=== PATIENT | female | born 1935 | race Caucasian/White ===

== ENCOUNTER → 2017-07-19 12:48 | Outpatient (CLI) | payer MEDICARE, OTHER, SELFPAY ==
--- NOTE | 2017-07-19 13:06 | US_ITS ---
US thyroid HISTORY: Follow-up thyroid nodules ITS.REASON: GOITER ORDERING PHYSICIAN: Kai Ayala MD PATIENT AGE: 82 years COMPARISON: 01/12/2017 FINDINGS: The right lobe is enlarged at 6.3 x 2.6 x 2.3 cm. Complex upper pole nodule at 13 x 9 mm unchanged Spongiform-appearing millimeter nodule upper pole unchanged Mixed 9 mm nodule mid polar region unchanged 10 mm spongiform-appearing nodule lower pole unchanged. Additional 13 mm mixed nodule lower pole unchanged The left lobe is enlarged at 5.9 x 2.4 x 2.5 cm. 1 cm slightly hypoechoic nodule mid polar region unchanged additional 12 x 8 mm mixed hypoechoic nodule mid polar region unchanged. 6 mm hypoechoic nodule lower pole unchanged 15 mm mixed hypoechoic nodule lower pole unchanged IMPRESSION: No change multinodular goiter
[2017-07-19 14:32] LABS: Free T4 (Free Thyroxine) 0.83 ng/dl (0.76-1.46); Thyroid Stimulating Hormone 1.73 uIU/ml (0.358-3.740)
[2017-07-21 15:19] LABS: Thyroglobulin Level <1.0 IU/mL (0.0-0.9); Thyroid Peroxidase Antibodies 12 IU/mL (0-34)
== END ==
PROVIDERS: Family Provider Internal Medicine Adolescent Medicine; PCP Internal Medicine Adolescent Medicine; Visit Provider Otolaryngology
DX: E04.9 Nontoxic goiter, unspecified (principal)
CPT/HCPCS: 36415; 76536; 84439; 84443; 86376; 86800

== ENCOUNTER → 2017-08-02 09:04 | Outpatient (CLI) | payer MEDICARE, OTHER, SELFPAY ==
[2017-08-02 13:39] LABS: Alanine Aminotransferase 29 U/L (12-78); Albumin Level 3.8 gm/dL (3.4-5.0); Albumin/Globulin Ratio 1.4 (1.1-1.8); Alkaline Phosphatase 95 U/L (46-116); Anion Gap 9.3 mEq/L (5-15); Aspartate Amino Transferase 10 U/L (15-37); Bilirubin,Total 0.6 mg/dL (0.2-1.0); Blood Urea Nitrogen 25 mg/dL (7-18); Calcium 9.7 mg/dL (8.5-10.1); Carbon Dioxide 31 mmol/L (21.0-32.0); Chloride 98 mmol/L (98-107); Chol/HDL Ratio 2.8 (1-3.5); Cholesterol 144 mg/dL (140-200); Estimated Glomerular Filt Rate 53 ml/min (>60); GFR (African American) 64 ML/MIN (>60); Globulin 2.8 gm/dl (1.3-3.2); Glucose 132 mg/dL (74-106); HDL Cholesterol 51 mg/dL (29-89); LDL Cholesterol 66 mg/dL (0-130); Potassium 4.3 mmoL/L (3.5-5.1); Sodium 134 mmol/L (136-145); Total Protein,Serum 6.6 gm/dL (6.4-8.2); Triglycerides 137 mg/dL (30-200); VLDL Cholesterol 27 mg/dL (0-40)
[2017-08-02 14:28] LABS: Hemoglobin A1C 5.8 % (0.0-7.0)
== END ==
PROVIDERS: PCP Internal Medicine Adolescent Medicine; Visit Provider Internal Medicine Adolescent Medicine
DX: E11.9 Type 2 diabetes mellitus without complications (principal)
CPT/HCPCS: 36415; 80053; 80061; 83036

== ENCOUNTER → 2018-07-20 15:09 | Outpatient (CLI) | payer MEDICARE, OTHER, SELFPAY ==
--- NOTE | 2018-07-20 15:12 | US_ITS ---
US thyroid HISTORY: Follow-up thyroid nodule ITS.REASON: thyroid nodule ORDERING PHYSICIAN: Kai Ayala MD PATIENT AGE: 83 years Comparison: 07/19/2017 FINDINGS: The isthmus is thickened at 7 mm with a 6 mm hypoechoic nodule anteriorly Right lobe is 5.9 x 2.6 x 2.7 cm with heterogeneous echogenicity and multiple mixed echogenic nodules. Largest nodule is 1.4 x 0.8 cm in the lower pole not significant changed. The left lobe is 5.5 x 2.5 x 3 cm with heterogeneous echogenicity with multiple mixed echogenic nodules with the largest nodule in the lower pole at 1.5 cm unchanged. IMPRESSION: No change multinodular goiter
[2018-07-20 17:47] LABS: Free T4 (Free Thyroxine) 0.86 ng/dl (0.76-1.46)
== END ==
PROVIDERS: PCP Internal Medicine Adolescent Medicine; Visit Provider Otolaryngology
DX: E04.1 Nontoxic single thyroid nodule (principal)
CPT/HCPCS: 36415; 76536; 84439; 84443

== ENCOUNTER → 2018-09-27 08:44 | Outpatient (CLI) | payer MEDICARE, OTHER, SELFPAY ==
[2018-09-27 13:46] LABS: Anion Gap 12.8 mEq/L (5-15); Blood Urea Nitrogen 25 mg/dL (7-18); Calcium 9.3 mg/dL (8.5-10.1); Carbon Dioxide 29 mmol/L (21.0-32.0); Chloride 102 mmol/L (98-107); Chol/HDL Ratio 3.2 (1-3.5); Cholesterol 97 mg/dL (140-200); Creatinine,Serum 0.98 mg/dL (0.55-1.02); Estimated Glomerular Filt Rate 54 ml/min (>60); GFR (African American) 65 ML/MIN (>60); Glucose 130 mg/dL (74-106); HDL Cholesterol 30 mg/dL (29-89); LDL Cholesterol 42 mg/dL (0-130); Potassium 3.8 mmoL/L (3.5-5.1); Sodium 140 mmol/L (136-145); Triglycerides 123 mg/dL (30-200); VLDL Cholesterol 25 mg/dL (0-40)
[2018-09-27 14:49] LABS: Hemoglobin A1C 6.4 % (0.0-7.0)
== END ==
PROVIDERS: PCP Internal Medicine Adolescent Medicine; Visit Provider Internal Medicine Adolescent Medicine
DX: E11.9 Type 2 diabetes mellitus without complications (principal); Z79.84 Long term (current) use of oral hypoglycemic drugs; I25.10 Atherosclerotic heart disease of native coronary artery without angina pectoris
CPT/HCPCS: 36415; 80048; 80061; 83036

== ENCOUNTER 2018-10-30 12:37 | Emergency (ER) | payer MEDICARE, OTHER, SELFPAY ==
[2018-10-30 12:38] VITALS: BP 187/98; PULSE 67; RESP 18; TEMP 36.8; O2SAT 95; BMI 25.9
--- NOTE | 2018-10-30 12:38 | CT_ITS ---
CT head/brain wo con HISTORY: ITS.REASON: stroke protocol, weakness, diffuculty with speech ORDERING PHYSICIAN: Tino Escobedo MD PATIENT AGE: 83 years COMPARISON: None TECHNIQUE: Axial images obtained without contrast. Brain and bone windows reviewed. All CT scans at the facility use one or more dose reduction, viz: automated exposure control, ma/kV adjustment per patient size (including targeted exams where dose is matched to indication, i.e. head), or iterative reconstruction technique. FINDINGS: No midline shift, mass effect, intracranial hemorrhage, hydrocephalus, or extra-axial fluid collection is evident. There are some hypodense areas along the left temporal and parietal area which are related to partial volume averaging with a sulcus. There is no definite evidence of cytotoxic or vasogenic edema. There are some bilateral frontal and parietal deep white matter hypodense areas without mass effect. There is no hyperdense vascular sign. There is mild generalized prominence of the sulci. The ventricles and cortical areas are otherwise normal. There are vascular calcified plaques. The calvarium has an unremarkable appearance. No mastoid effusion. No sinus air-fluid levels.. IMPRESSION: No acute intracranial process. Mild generalized cortical atrophy. Nonspecific white matter findings likely from chronic microvascular ischemic change. Nonspecific partially calcified round superior occipital extracranial density could be complicated sebaceous cyst.
--- NOTE | 2018-10-30 12:39 | PC.NURSE ---
pt to CT
[2018-10-30 12:40] VITALS: BMI 25.9
--- NOTE | 2018-10-30 12:53 | HMH.EDGENADL ---
ED Disposition Clinical Impression: TIA (transient ischemic attack) Disposition: Home, Self-Care Condition on Discharge: Good Additional Instructions: See Dr. Robles in the office this week. Increase the dose of losartan to 50 mg daily. Return to the emergency room if your symptoms return. Referrals: Provider,Referral, [Referring] - - Critical Care Critical Care Time: No Attestation: On , the high probability of a clinically significant, sudden or life threatening deterioration of the following system(s) required my full and direct attention, intervention and personal management. The time I documented below is in addition to time spent performing reported procedures but includes the following listed in this critical care notation. Medical Decision Making - Rambo Inquiry Pt receiving controlled substance: No Vital Signs: 10/30/18 12:38 10/30/18 13:30 Temperature 98.2 F Temperature Source Oral Pulse Rate [Right Radial] 67 62 Respiratory Rate 18 18 Blood Pressure [Right Arm] 187/98 H 159/90 H Blood Pressure Mean [Right Arm] 127 113 Blood Pressure Source [Right Arm] Automatic Cuff Automatic Cuff Blood Pressure Position [Right Arm] Sitting Sitting 02 Sat by Pulse Oximetry 95 94 L Oxygen Delivery Method Room Air Room Air - Lab Data Lab Results 10/30/18 12:55: WBC 7.6, RBC 4.10 L, Hgb 13.5, Hct 41.5, MCV 101.2 H, MCH 33.0 H, MCHC 32.6, RDW 12.7, Plt Count 135 L, MPV 7.5, Neut % (Auto) 74.4, Lymph % (Auto) 16.4, [place] % (Auto) 6.1, Eos % (Auto) 2.7, Baso % (Auto) 0.6, Neut # (Auto) 5.6, Lymph # (Auto) 1.2, [place] # (Auto) 0.5, Eos # (Auto) 0.2, Baso # (Auto) 0.0 10/30/18 12:55: Sodium 134 L, Potassium 4.2, Chloride 97 L, Carbon Dioxide 28, Anion Gap 13.2, BUN 21 H, Creatinine 1.15 H, Estimated Creat Clear 45, Estimated GFR 45 L, Est GFR ( Amer) 54 L, Glucose 136 H, Calcium 9.7, Total Bilirubin 0.7, AST 18, ALT 36, Alkaline Phosphatase 125 H, Troponin I < 0.02, Total Protein 6.9, Albumin 3.7, Globulin 3.2, Albumin/Globulin Ratio 1.2 10/30/18 12:55: POC Glucose 143 H Result diagrams: 10/30/18 12:55 10/30/18 12:55 - CT Data CT Scan: Head Time Received: 12:[address] Reviewed: Yes: I have viewed the radiologist's interpretation Findings Narrative: IMPRESSION: No acute intracranial process. Mild generalized cortical atrophy. Nonspecific white matter findings likely from chronic microvascular ischemic change. Nonspecific partially calcified round superior occipital extracranial density could be complicated sebaceous cyst. Dictated By: Manolo Okeefe MD Signed By: <Electronically signed by Manolo Okeefe MD in [facility]> 10/30/18 1253 - ECG Data Tracing #1 EKG interpreted by Tino Escobedo MD: Rhythm: sinus Rate: 61 [place]: Left Ectopy: none Conduction: normal ST Segment Changes: none T Wave Changes: none Q Waves: none No evidence of acute ischemia or injury Low voltage QRS No prior EKGs available for comparison - Physician Consults Physician Consulted: Lenard Robles Time: 13:40 Reason -: Pt condition Comment/Response: Recommends discharge, increase losartan to 50 mg daily. Follow-up in the clinic tomorrow, , or Monday. - Reevaluation(s) Time: 13:27 Reevaluation #1: States head feels wobbly, otherwise feels fine. Blood pressure 159/90. Medical Decision Narrative: Prior Brain MRI: IMPRESSION: No territorial infarct. No acute infarct or ischemia No mass lesions evident at the brain.. Chronic small vessel deep white matter ischemic changes at cerebral hemispheres bilaterally . These are slightly more numerous & partially confluent just above the left basal ganglia & periventricular deep white matter.. However areas are seen in the deep white matter bilaterally Upper normal signal at the globus pallidus on T2 weighted images. Nonspecific as discussed above. May be reflection of small vessel changes/perfusion changes here
--- NOTE | 2018-10-30 12:58 | PC.NURSE ---
fsbs 143
--- NOTE | 2018-10-30 13:01 | PC.NURSE ---
DEANNE JASMINE at
[2018-10-30 13:03] LABS: POC Glucose,Bedside 143 (70-110)
[2018-10-30 13:09] LABS: Basophils % 0.6 % (0.1-2.0); Eosinophils # 0.2 K/mm3 (0.0-0.4); Eosinophils % 2.7 % (0.1-12.0); Hematocrit 41.5 % (37.0-47.0); Hemoglobin 13.5 g/dL (12.2-16.2); Lymphocytes # 1.2 K/mm3 (0.7-4.5); Lymphocytes % 16.4 % (10-50); Mean Corpuscular HGB Conc 32.6 g/dL (31.8-35.4); Mean Corpuscular Volume 101.2 fl (81-99); Mean Platelet Volume 7.5 fl (7.4-10.4); Monocytes # 0.5 K/mm3 (0.1-1.0); Monocytes % 6.1 % (1.7-9.3); Neutrophils # 5.6 K/mm3 (1.8-7.8); Neutrophils % 74.4 % (37.0-80.0); Platelet Count 135 K/mm3 (142-424); Red Cell Distribution Width 12.7 % (11.5-17.5); White Blood Count 7.6 K/mm3 (4.8-10.8)
[2018-10-30 13:18] LABS: Alanine Aminotransferase 36 U/L (12-78); Albumin Level 3.7 gm/dL (3.4-5.0); Albumin/Globulin Ratio 1.2 (1.1-1.8); Alkaline Phosphatase 125 U/L (46-116); Anion Gap 13.2 mEq/L (5-15); Aspartate Amino Transferase 18 U/L (15-37); Bilirubin,Total 0.7 mg/dL (0.2-1.0); Blood Urea Nitrogen 21 mg/dL (7-18); Calcium 9.7 mg/dL (8.5-10.1); Carbon Dioxide 28 mmol/L (21.0-32.0); Chloride 97 mmol/L (98-107); Creatinine Clearance Estimated 45 mL/min (50-200); Creatinine,Serum 1.15 mg/dL (0.55-1.02); Estimated Glomerular Filt Rate 45 ml/min (>60); GFR (African American) 54 ML/MIN (>60); Globulin 3.2 gm/dl (1.3-3.2); Glucose 136 mg/dL (74-106); Potassium 4.2 mmoL/L (3.5-5.1); Sodium 134 mmol/L (136-145); Total Protein,Serum 6.9 gm/dL (6.4-8.2); Troponin I < 0.02 ng/ml (0.00-0.06)
[2018-10-30 13:30] VITALS: BP 159/90; PULSE 62; RESP 18; O2SAT 94
--- NOTE | 2018-10-30 13:46 | PC.NURSE ---
Noreen called from pt PCP office to schedule a follow up visit for pt. Pt will see Dr. Weinberg in the office on Monday11/03/18 at 10:45
[2018-10-30 14:23] VITALS: BP 134/71; PULSE 61; RESP 18; TEMP 36.8; O2SAT 96
== END 2018-10-30 14:23 | disposition home or self-care (01) ==
PROVIDERS: Emergency Provider Emergency Medicine; PCP Internal Medicine Adolescent Medicine
DX: G45.8 Other transient cerebral ischemic attacks and related syndromes (principal); E11.9 Type 2 diabetes mellitus without complications; Z79.84 Long term (current) use of oral hypoglycemic drugs; K21.9 Gastro-esophageal reflux disease without esophagitis; I10 Essential (primary) hypertension; E78.5 Hyperlipidemia, unspecified; I73.9 Peripheral vascular disease, unspecified
CPT/HCPCS: 70450; 80053; 82962; 84484; 85025; 93005; 99283

== ENCOUNTER → 2019-04-11 08:55 | Outpatient (CLI) | payer MEDICARE, OTHER, SELFPAY ==
[2019-04-11 13:46] LABS: Alanine Aminotransferase 24 U/L (12-78); Albumin Level 3.9 gm/dL (3.4-5.0); Albumin/Globulin Ratio 1.5 (1.1-1.8); Alkaline Phosphatase 88 U/L (46-116); Anion Gap 11.7 mEq/L (5-15); Aspartate Amino Transferase 15 U/L (15-37); Bilirubin,Total 0.8 mg/dL (0.2-1.0); Blood Urea Nitrogen 24 mg/dL (7-18); Calcium 9.3 mg/dL (8.5-10.1); Carbon Dioxide 30 mmol/L (21.0-32.0); Chloride 102 mmol/L (98-107); Chol/HDL Ratio 2.5 (1-3.5); Cholesterol 97 mg/dL (140-200); Creatinine,Serum 0.93 mg/dL (0.55-1.02); Estimated Glomerular Filt Rate 57 ml/min (>60); GFR (African American) 69 ML/MIN (>60); Globulin 2.6 gm/dl (1.3-3.2); Glucose 154 mg/dL (74-106); HDL Cholesterol 39 mg/dL (29-89); LDL Cholesterol 38 mg/dL (0-130); Potassium 3.7 mmoL/L (3.5-5.1); Sodium 140 mmol/L (136-145); Total Protein,Serum 6.5 gm/dL (6.4-8.2); Triglycerides 98 mg/dL (30-200); VLDL Cholesterol 20 mg/dL (0-40)
[2019-04-11 13:56] LABS: Hemoglobin A1C 6.8 % (0.0-7.0)
== END ==
PROVIDERS: PCP Internal Medicine Adolescent Medicine; Visit Provider Internal Medicine Adolescent Medicine
DX: E11.9 Type 2 diabetes mellitus without complications (principal); Z79.84 Long term (current) use of oral hypoglycemic drugs
CPT/HCPCS: 36415; 80053; 80061; 83036

== ENCOUNTER → 2019-09-09 13:18 | Outpatient (CLI) | payer MEDICARE, OTHER, SELFPAY ==
--- NOTE | 2019-09-09 13:25 | US_ITS ---
PROCEDURE: US THYROID CLINICAL INDICATION: GOITER COMPARISON: THY US thyroid from 07/20/2018 FINDINGS: Right lobe is 4.4 x 2 x 2.5 cm in the left lobe is 5 x 2.2 x 2.2 cm. There is a ill-defined 1 cm isoechoic to slightly hypoechoic nodule in the isthmus not significantly changed. There are numerous bilateral I so and hypoechoic nodules measuring up to 1.4 cm in the lower pole. These are not significantly changed. Numerous left-sided hypoechoic and isoechoic nodules and cysts are also noted. The largest nodule is in the lower pole at 1.4 cm having both cystic and solid features not significantly changed. No new suspicious nodules are evident. IMPRESSION: No change multinodular goiter Dictated by: Jose Muhammad MD 09/09/2019 18:33 Electronically signed by Jose Muhammad MD in [place] 09/09/2019 18:33
== END ==
PROVIDERS: PCP Internal Medicine Adolescent Medicine; Visit Provider Otolaryngology
DX: E04.9 Nontoxic goiter, unspecified (principal)
CPT/HCPCS: 76536

== ENCOUNTER → 2020-10-06 17:41 | Outpatient (CLI) | payer MEDICARE, OTHER, SELFPAY ==
--- NOTE | 2020-10-06 17:57 | XR_ITS ---
PROCEDURE INFORMATION: Exam: XR Right Knee Exam date and time: 10/06/2020 5:57 PM Age: 85 years old Clinical indication: Pain; Knee; Right; Additional info: Pain, no injury TECHNIQUE: Imaging protocol: XR Right knee. Views: 3 views. COMPARISON: No relevant prior studies available. FINDINGS: Bones/joints: No acute fracture or dislocation. Tibiofemoral compartment chondrocalcinosis. The knee compartments are preserved. Normal bone mineralization. Soft tissues: No effusion or soft tissue swelling. Vasculature: Arterial calcification. IMPRESSION: Tibiofemoral compartment chondrocalcinosis.
[2020-10-06 18:56] LABS: Basophils # 0.1 K/mm3 (0-0.2); Basophils % 0.8 % (0.1-2.0); Eosinophils # 0.3 K/mm3 (0.0-0.4); Eosinophils % 3.8 % (0.1-12.0); Hematocrit 39.2 % (37.0-47.0); Hemoglobin 13.5 g/dL (12.2-16.2); Lymphocytes # 1.9 K/mm3 (0.7-4.5); Lymphocytes % 23.2 % (10-50); Mean Corpuscular HGB Conc 34.6 g/dL (31.8-35.4); Mean Corpuscular Hemoglobin 32.9 pg (27.0-31.2); Mean Platelet Volume 7.1 fl (7.4-10.4); Monocytes # 0.6 K/mm3 (0.1-1.0); Monocytes % 7.9 % (1.7-9.3); Neutrophils # 5.2 K/mm3 (1.8-7.8); Neutrophils % 64.2 % (37.0-80.0); Platelet Count 161 K/mm3 (142-424); Red Blood Count 4.12 M/mm3 (4.20-5.40); White Blood Count 8.1 K/mm3 (4.8-10.8)
[2020-10-06 20:00] LABS: Alanine Aminotransferase 20 U/L (12-78); Albumin Level 4.6 g/dl (3.5-5.0); Albumin/Globulin Ratio 1.9 (1.1-1.8); Alkaline Phosphatase 80 U/L (38-126); Anion Gap 11.3 mEq/L (5-15); Aspartate Amino Transferase 24 U/L (14-36); Bilirubin,Total 0.6 mg/dl (0.2-1.3); Blood Urea Nitrogen 28 mg/dl (7-17); Calcium 9.9 mg/dl (8.4-10.2); Carbon Dioxide 30 mmol/L (22.0-30.0); Chloride 100 mmol/L (98-107); Estimated Glomerular Filt Rate 43 ml/min (>60); GFR (African American) 52 ML/MIN (>60); Globulin 2.4 g/dL (1.3-3.2); Glucose 123 mg/dl (74-100); Potassium 4.3 mmoL/L (3.5-5.1); Sodium 137 mmol/L (136-145); Uric Acid 6.1 mg/dl (2.5-6.2)
[2020-10-06 20:54] LABS: Erythrocyte Sedimentation Rate 19 mm/hr (0-30)
== END ==
PROVIDERS: Visit Provider Internal Medicine Adolescent Medicine
DX: M25.561 Pain in right knee (principal)
CPT/HCPCS: 73562; 80053; 84550; 85025; 85651

== ENCOUNTER 2021-02-09 09:54 | Emergency (ER) | payer MEDICARE, OTHER, SELFPAY ==
[2021-02-09] VITALS (8 sets, daily range): BP systolic 155–184; BP diastolic 77–100; PULSE 64–74; RESP 16–22; TEMP 36.7; O2SAT 95–98; BMI 25.8
--- NOTE | 2021-02-09 09:57 | ECG_ITS ---
APPROVED REPORT Exam: Resting ECG HR:66 bpm ECG Measurements Heart Rate 66 AXES ME 166 P 10 QRSd 84 QRS -27 QT 386 T 25 QTc 404 Conclusion Normal sinus rhythm Low voltage QRS Old anteroseptal changes Abnormal ECG Electronically signed by : Chase Robles MD 02/11/2021 17:51:40
--- NOTE | 2021-02-09 09:58 | HMH.EDGENADL ---
ED Disposition Clinical Impression: TIA (transient ischemic attack), Hypertensive emergency Disposition: Home, Self-Care Condition on Discharge: Good Referrals: Chase Robles MD [Primary Care Provider] - 02/10/21 11:30 am Time of Disposition: 13:44 - Critical Care Critical Care Time: No Attestation: On , the high probability of a clinically significant, sudden or life threatening deterioration of the following system(s) required my full and direct attention, intervention and personal management. The time I documented below is in addition to time spent performing reported procedures but includes the following listed in this critical care notation. Medical Decision Making - Medical Records Medical records reviewed: Yes: I reviewed the patient's medical records. - Rambo Inquiry Pt receiving controlled substance: No Vital Signs: 02/09/21 09:54 02/09/21 11:00 02/09/21 11:48 Temperature 98.0 F Temperature Source Oral Pulse Rate 69 67 Pulse Rate [Right Radial] 69 Respiratory Rate 18 18 16 Blood Pressure 176/84 H 184/93 H Blood Pressure [Right Arm] 171/77 H Blood Pressure Mean 125 123 Blood Pressure Mean [Right Arm] 108 Blood Pressure Source [Right Arm] Automatic Cuff Blood Pressure Position [Right Arm] Sitting 02 Sat by Pulse Oximetry 96 96 97 Oxygen Delivery Method Room Air Room Air Room Air 02/09/21 12:00 02/09/21 12:30 02/09/21 13:00 Temperature Temperature Source Pulse Rate 69 64 71 Pulse Rate [Right Radial] Respiratory Rate 16 20 16 Blood Pressure 175/82 H 181/95 H 162/86 H Blood Pressure [Right Arm] Blood Pressure Mean 113 123 134 Blood Pressure Mean [Right Arm] Blood Pressure Source [Right Arm] Blood Pressure Position [Right Arm] 02 Sat by Pulse Oximetry 97 95 96 Oxygen Delivery Method Room Air 02/09/21 13:30 Temperature Temperature Source Pulse Rate 74 Pulse Rate [Right Radial] Respiratory Rate 22 Blood Pressure 155/94 H Blood Pressure [Right Arm] Blood Pressure Mean 120 Blood Pressure Mean [Right Arm] Blood Pressure Source [Right Arm] Blood Pressure Position [Right Arm] 02 Sat by Pulse Oximetry 96 Oxygen Delivery Method - Lab Data Lab results reviewed: Yes: I reviewed the patient's lab results. Lab Results 02/09/21 10:27: WBC 8.7, RBC 3.92 L, Hgb 13.4, Hct 39.1, MCV 99.8 H, MCH 34.1 H, MCHC 34.2, RDW 12.7, Plt Count 148, MPV 8.5, Neut % (Auto) 75.6, Lymph % (Auto) 14.5, [place] % (Auto) 5.4, Eos % (Auto) 3.8, Baso % (Auto) 0.7, Neut # (Auto) 6.6, Lymph # (Auto) 1.3, [place] # (Auto) 0.5, Eos # (Auto) 0.3, Baso # (Auto) 0.1 02/09/21 10:27: Sodium 139, Potassium 4.6, Chloride 101, Carbon Dioxide 30, Anion Gap 12.6, BUN 17, Creatinine 0.80, Estimated Creat Clear 49, Estimated GFR 68, Est GFR ( Amer) 82, Glucose 139 H, Calcium 9.7, Total Bilirubin 0.9, AST 25, ALT 20, Alkaline Phosphatase 80, Troponin I < 0.01, Total Protein 6.4, Albumin 4.1, Globulin 2.3, Albumin/Globulin Ratio 1.8 02/09/21 10:30: SARS-CoV-2 (PCR) Not detected, Influenza A Untype (PCR) Not detected, Influenza Type B (PCR) Not detected Result diagrams: 02/09/21 10:27 02/09/21 10:27 Orders (Tests/Meds): ED MEDICATIONS Discontinued Medications Generic Name Dose Route Start Last Admin Trade Name Freq PRN Reason Stop Dose Admin Iopamidol 100 ml 02/09/21 11:53 02/09/21 11:54 Iopamidol-370 (76%);100ml Bottle IV 02/09/21 11:54 100 ml ONCE ONE Administration Irbesartan 37.5 mg 02/09/21 12:45 02/09/21 12:50 Irbesartan 75mg Tablet PO 02/09/21 12:46 37.5 mg ONCE ONE Administration Sodium Chloride 40 ml 02/09/21 11:53 02/09/21 11:54 0.9 % Sodium Chloride 50 Ml Vial IV 02/09/21 11:54 40 ml ONCE ONE Administration Sodium Chloride 10 ml 02/09/21 11:53 02/09/21 11:54 Sodium Chloride 0.9% 10ml Syr (Rad Only) IV 02/09/21 11:54 10 ml ONCE ONE Administration ORDERS Category Date Time Status Troponin I Q3H Lab
--- NOTE | 2021-02-09 09:59 | XR_ITS ---
PROCEDURE: XR CHEST PORTABLE CLINICAL HISTORY: htn COMPARISON: CR CXR CHEST(2 VIEWS-NOT PORTABLE) from 02/13/2014 CT CTAC CTA-CHEST from 02/14/2014 CR CXR CHEST(2 VIEWS-NOT PORTABLE) from 02/17/2014 FINDINGS: Prior CABG. Mild cardiomegaly. Loop recorder device noted in the central lower chest area. No CHF The lungs are clear without infiltrates, suspicious nodules, or pleural effusions. Surgical clips are present in the left axillary region. No acute bony findings IMPRESSION: Cardiomegaly, prior CABG otherwise negative with no acute finding Dictated by: Jose Muhammad MD 02/09/2021 11:25 Jose Muhammad MD in [place] 02/09/2021 11:25
--- NOTE | 2021-02-09 09:59 | PC.NURSE ---
notified rad of ct head
--- NOTE | 2021-02-09 10:34 | CT_ITS ---
PROCEDURE: CT HEAD/BRAIN WO CON CLINICAL INDICATION: tia COMPARISON: MR BRW/O MRI-BRAIN W/O from 08/11/[address] head/brain wo con from 10/30/2018 TECHNIQUE: Axial images obtained. All CT scans at the facility use one or more dose reduction, viz: automated exposure control, ma/kV adjustment per patient size (including targeted exams where dose is matched to indication, i.e. head), or iterative reconstruction technique. FINDINGS: No midline shift, mass effect, intracranial hemorrhage, hydrocephalus, or extra-axial fluid collection is evident. There is generalized atrophy with hypoattenuation of the periventricular white matter consistent with microangiopathic changes. 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 No intracranial hemorrhage. Subcutaneous calcification noted in the left posterior parietal region centrally. No mastoid effusion or sinus air-fluid level. No acute calvarial abnormality. IMPRESSION: 1. Atrophy with chronic ischemic gliotic changes. 2. Vague decreased attenuation within the left putamen medially which has developed since the previous study. This could represent an area of acute lacunar infarction or new areas of ischemic gliotic change. MRI with diffusion imaging may provide further evaluation to evaluate the acuteness of this finding. Dictated by: Jose Muhammad MD 02/09/2021 11:02 Jose Muhammad MD in [place] 02/09/2021 11:02
[2021-02-09 10:38] LABS: Basophils # 0.1 K/mm3 (0-0.2); Basophils % 0.7 % (0.1-2.0); Eosinophils # 0.3 K/mm3 (0.0-0.4); Eosinophils % 3.8 % (0.1-12.0); Hematocrit 39.1 % (37.0-47.0); Hemoglobin 13.4 g/dL (12.2-16.2); Lymphocytes # 1.3 K/mm3 (0.7-4.5); Lymphocytes % 14.5 % (10-50); Mean Corpuscular HGB Conc 34.2 g/dL (31.8-35.4); Mean Corpuscular Hemoglobin 34.1 pg (27.0-31.2); Mean Corpuscular Volume 99.8 fl (81-99); Mean Platelet Volume 8.5 fl (7.4-10.4); Monocytes # 0.5 K/mm3 (0.1-1.0); Monocytes % 5.4 % (1.7-9.3); Neutrophils # 6.6 K/mm3 (1.8-7.8); Neutrophils % 75.6 % (37.0-80.0); Platelet Count 148 K/mm3 (142-424); Red Blood Count 3.92 M/mm3 (4.20-5.40); Red Cell Distribution Width 12.7 % (11.5-17.5); White Blood Count 8.7 K/mm3 (4.8-10.8)
--- NOTE | 2021-02-09 10:39 | PC.NURSE ---
notified radiology that pt chest xray has been done but not head ct. Notified rad head Ct needs to be done stat. spoke with Kavitha
[2021-02-09 10:40] LABS: Coronavirus 19, PCR Not Detected (NotDetected); Influenza A, PCR Not Detected (NotDetected); Influenza B, PCR Not Detected (NotDetected)
--- NOTE | 2021-02-09 10:42 | PC.NURSE ---
pt to CT
[2021-02-09 10:46] LABS: Alanine Aminotransferase 20 U/L (12-78); Albumin Level 4.1 g/dl (3.5-5.0); Albumin/Globulin Ratio 1.8 (1.1-1.8); Alkaline Phosphatase 80 U/L (38-126); Anion Gap 12.6 mEq/L (5-15); Aspartate Amino Transferase 25 U/L (14-36); Bilirubin,Total 0.9 mg/dl (0.2-1.3); Blood Urea Nitrogen 17 mg/dl (7-17); Calcium 9.7 mg/dl (8.4-10.2); Carbon Dioxide 30 mmol/L (22.0-30.0); Chloride 101 mmol/L (98-107); Creatinine Clearance Estimated 49 mL/min (50-200); Estimated Glomerular Filt Rate 68 ml/min (>60); GFR (African American) 82 ML/MIN (>60); Globulin 2.3 g/dL (1.3-3.2); Glucose 139 mg/dl (74-100); Potassium 4.6 mmoL/L (3.5-5.1); Sodium 139 mmol/L (136-145); Total Protein,Serum 6.4 g/dl (6.3-8.2)
[2021-02-09 11:00] LABS: Troponin I < 0.01 ng/ml (0.00-0.034)
--- NOTE | 2021-02-09 11:09 | PC.NURSE ---
notified ER MD of CT head reading is resulted ER MD gave verbal order for CTA head
--- NOTE | 2021-02-09 11:20 | CT_ITS ---
Procedure: CT ANGIO NECK CT ANGIO HEAD CLINICAL HISTORY: r/o stroke COMPARISON: CT CT ANGIO HEAD from 02/09/2021 TECHNIQUE: IV Contrast: 100ml Isovue 370 Axial images obtained with sagittal and coronal reformats. All CT scans at the facility use one or more dose reduction, viz: automated exposure control, ma/kV adjustment per patient size (including targeted exams where dose is matched to indication, i.e. head), or iterative reconstruction technique. FINDINGS: CT angio neck: The aortic arch has some peripheral calcific plaque. No evidence of aneurysm. There is tortuosity of the great vessels. The common carotids have an unremarkable appearance. Minimal plaque is present within the proximal right ICA with less than 20 percent stenosis. No significant stenotic lesion of the right ICA. Eccentric calcific plaque is present in the proximal left ICA with approximately 40 percent stenosis proximally. No ulceration apparent. The mid distal left ICA have an unremarkable appearance. Minimal calcific plaque at the ostium of the right vertebral. No significant stenosis of the vertebrals. CTA head: Calcific plaque is present in the cavernous portion and clinoid portion of both ICAs with less than 50 percent stenosis. No dissection apparent in the carotids, internal carotids or vertebrals. Luminal irregularity involves the MCA on both sides consistent with atheromatous changes. No aneurysm apparent. There is mild atheromatous change involving the intracranial segment of the right vertebral with approximately 40 percent stenosis. Basilar artery and sports commentator have an unremarkable appearance. No thrombus apparent. No major intracranial vascular occlusion. The thyroid gland is enlarged on both sides left slightly greater than right. No obvious sinus thrombosis. No enhancing lesions of the brain. IMPRESSION: 1. Scattered atheromatous changes as described above with no significant stenosis apparent. Less than 20 percent stenosis of the proximal right ICA and 40 percent stenosis of left proximal ICA. 2. Calcific plaque in the cavernous and clinoid portion of the ICAs with 50 percent or less stenosis. 3. No aneurysm AVM or major intracranial occlusive process apparent. 4. Luminal irregularity of the MCAs on both sides suggesting atheromatous changes Dictated by: Jose Muhammad MD 02/09/2021 12:15 Jose Muhammad MD in [place] 02/09/2021 12:15
--- NOTE | 2021-02-09 11:22 | PC.NURSE ---
notified rad of CTA hea/neck order
--- NOTE | 2021-02-09 12:25 | PC.NURSE ---
DEANNE JASMINE speaking with Dr. Weinberg
--- NOTE | 2021-02-09 13:02 | PC.NURSE ---
updated pt daughters on her POC at this time per pt request
--- NOTE | 2021-02-09 14:11 | PC.NURSE ---
appt made for pt with Dr. Robles in [facility] [employer] office tomorrow at 11:30am.
== END 2021-02-09 14:42 | disposition home or self-care (01) ==
PROVIDERS: Emergency Provider Family Medicine; PCP Internal Medicine Adolescent Medicine
DX: I16.1 Hypertensive emergency (principal); G45.8 Other transient cerebral ischemic attacks and related syndromes; K21.9 Gastro-esophageal reflux disease without esophagitis; E78.5 Hyperlipidemia, unspecified; I25.2 Old myocardial infarction; Z79.899 Other long term (current) drug therapy; Z20.822 Contact with and (suspected) exposure to COVID-19
CPT/HCPCS: 36415; 70450; 70496; 70498; 71045; 80053; 84484; 85025; 93005; 99283; C9803; Q9967; U0003; U0005

== ENCOUNTER 2023-08-01 13:13 | Outpatient (CLI) | payer MEDICARE, SELFPAY ==
--- NOTE | 2023-08-01 13:20 | CA_ITS ---
FINAL REPORT TECHNIQUE: Graded compression, spectral analysis and ultrasound images of the venous system of the upper extremity were obtained. CLINICAL HISTORY: EDEMA LEFT FOREARM X SEVERAL WEEKS,PAIN LEFT WRSIT AND ELBOW,NKI,PT ON PLAVIX COMPARISON: None FINDINGS: The jugular vein, subclavian vein, axillary vein, brachial vein, cephalic vein and basilic venous system are fully compressible and demonstrate no evidence of thrombosis. IMPRESSION: No evidence of thrombosis of the venous system of the left upper extremity. Reviewed, Interpreted and Dictated by Vahid Guerrero MD Transcribed by Flavia Holt Authenticated and [facility]
--- NOTE | 2023-08-01 14:16 | US_ITS ---
FINAL REPORT CLINICAL HISTORY: PALPABLE MASS OF NECK COMPARISON: None FINDINGS: ULTRASOUND SOFT TISSUES NECK: Ultrasound examination was performed in the right neck to evaluate a mass on the right side of the neck. The area of interest is overlying the thyroid gland on the right side, and there are numerous nodules seen in the right lobe of the thyroid measuring up to 1.1 cm in size. The submandibular and parotid glands are unremarkable bilaterally. No other focal neck mass is noted. IMPRESSION: The area of interest corresponds to the right lobe of the thyroid, which has multiple nodules measuring up to 1.1 cm in size. Would recommend dedicated thyroid ultrasound for further evaluation as clinically indicated. Normal-appearing salivary glands. Reviewed, Interpreted and Dictated by Vahid Guerrero MD Transcribed by Liz Lynne Authenticated and [facility]
== END 2023-08-01 23:59 ==
PROVIDERS: PCP Internal Medicine Adolescent Medicine; Visit Provider Internal Medicine Adolescent Medicine
DX: R22.1 Localized swelling, mass and lump, neck (principal); M79.89 Other specified soft tissue disorders
CPT/HCPCS: 76536; 93971

== ENCOUNTER 2023-08-10 10:01 | Outpatient (CLI) | payer MEDICARE, OTHER, SELFPAY ==
--- NOTE | 2023-08-10 10:05 | US_ITS ---
FINAL REPORT CLINICAL HISTORY: THYROID NODULE COMPARISON: 09/09/2019 FINDINGS: THYROID ULTRASOUND: The right lobe of the thyroid measures 5.7 x 2.7 x 1.8 cm in size. The left lobe of the thyroid measures 5.9 x 2.5 x 2.1 cm in size. The isthmus of the thyroid measures 5 mm in thickness. The thyroid gland is enlarged, and heterogeneous, with multiple thyroid nodules present bilaterally. There were also multiple thyroid nodules present on the prior thyroid ultrasound of 2019. The largest nodule on the right side measures 10 x 9 x 6 mm in size, is in the lower pole, spongiform, and isoechoic. This is a TI-RADS category 1 nodule. The largest nodule on the left side measures 11 x 11 x 8 mm in size with a macrocalcification, isoechoic, a TI-RADS category 2 nodule. IMPRESSION: Numerous bilateral nodules are present in an enlarged, heterogeneous thyroid gland, the overall appearance consistent with a multinodular goiter. The 2 largest nodules in the thyroid gland are described in the body of the report, a TI-RADS 1 and a TI-RADS 2 nodule. Although there are differences in technique, these nodules are visually stable when compared to the prior exam of 2019. Reviewed, Interpreted and Dictated by Lawrence Urrutia III, MD Transcribed by Liz Lynne Authenticated and [facility]
== END 2023-08-10 23:59 ==
LOC: RAD 10:02
PROVIDERS: PCP Internal Medicine Adolescent Medicine; Visit Provider Internal Medicine Adolescent Medicine
DX: E04.1 Nontoxic single thyroid nodule (principal)
CPT/HCPCS: 76536

== ENCOUNTER 2023-09-19 11:39 | Emergency (ER) | payer MEDICARE, OTHER, SELFPAY ==
[2023-09-19] VITALS (10 sets, daily range): BP systolic 159–224; BP diastolic 80–121; PULSE 62–86; RESP 16–18; TEMP 38.2; O2SAT 88–98; BMI 24.3; BMI 243001.9
--- NOTE | 2023-09-19 11:28 | CT_ITS ---
FINAL REPORT TECHNIQUE: Thin section axial CT with IV contrast supplemented with multiplanar reconstruction under CT angiogram protocol. This study was performed with techniques to keep radiation doses as low as reasonably achievable (ALARA). Individualized dose reduction techniques using automated exposure control or adjustment of mA and/or kV according to the patient''s size were employed. NASCET criteria was utilized during interpretation. Some of the images are degraded by motion. CLINICAL HISTORY: stroke protocol, R sided weakness, LKN last night FINDINGS: Aortic arch: Arch shows no significant narrowing. Great vessel origins are widely patent. Right carotid: There is no evidence of common carotid stenosis. Mild plaque is noted at the carotid bifurcation. The internal carotid artery is patent without significant stenosis. The distal internal carotid artery is obscured by motion. Left carotid: There is no evidence of common carotid stenosis. Calcified plaque is noted at the left carotid bulb with a less than 50% stenosis. The more distal left internal carotid artery is patent. Vertebral: The vertebral arteries are codominant. There is no evidence of stenosis or occlusion. IMPRESSION: Calcified plaque at the left carotid bulb with a mild stenosis. No evidence of significant stenosis or major branch occlusion. Authenticated and [facility]
--- NOTE | 2023-09-19 11:28 | CT_ITS ---
FINAL REPORT CLINICAL HISTORY: stroke protocol, R sided weakness, LKN last night FINDINGS: Axial images of the head were obtained without contrast. Coronal reformatted images were also obtained. This study was performed with techniques to keep radiation doses as low as reasonably achievable (ALARA). Individualized dose reduction techniques using automated exposure control or adjustment of mA and/or kV according to the patient''s size were employed. Many of the images are degraded by motion artifact. There is generalized age-appropriate atrophy. Periventricular low-attenuation areas are seen consistent with mild chronic ischemic changes. There is no evidence of intracranial hemorrhage or mass. There is no evidence of acute infarct. There is no evidence of shift of the midline structures. No skull abnormality is seen on the bone window images. IMPRESSION: Atrophy and mild periventricular chronic ischemic changes. No acute intracranial abnormality identified. Authenticated and [facility]
--- NOTE | 2023-09-19 11:28 | CT_ITS ---
FINAL REPORT TECHNIQUE: Thin section axial CT with IV contrast supplemented with multiplanar reconstruction under CT angiogram protocol. 3-D reconstructions were performed. This study was performed with techniques to keep radiation doses as low as reasonably achievable (ALARA). Individualized dose reduction techniques using automated exposure control or adjustment of mA and/or kV according to the patient''s size were employed. CLINICAL HISTORY: stroke protocol, R sided weakness, LKN last night FINDINGS: The distal vertebral, basilar and distal internal carotid arteries have an unremarkable appearance. No aneurysm is seen. Major intracranial vessels are patent without significant stenosis. The proximal anterior, middle and posterior cerebral arteries have an unremarkable appearance. No major branch occlusion is identified. IMPRESSION: No evidence of significant stenosis or major branch occlusion. Authenticated and ERN
--- NOTE | 2023-09-19 11:29 | XR_ITS ---
FINAL REPORT CLINICAL HISTORY: stroke protocol FINDINGS: SINGLE-VIEW CHEST There is cardiomegaly. Patient is status post median sternotomy. The lungs are clear. There is no pneumothorax. IMPRESSION: No acute cardiopulmonary process. Reviewed, Interpreted and Dictated by Lawrence Urrutia III, MD Transcribed by Violeta Keller Authenticated and [facility]
--- NOTE | 2023-09-19 11:37 | PC.NURSE ---
Stroke alert called
--- NOTE | 2023-09-19 11:38 | PC.NURSE ---
pt to ct scan.
[2023-09-19] MEDS: 0.9 % SODIUM CHLORIDE 50 ML VIAL IV (11:48)
[2023-09-19] MEDS: IOPAMIDOL-370 (76%);100ML BOTTLE 100 ML IV (11:48)
[2023-09-19] MEDS: SODIUM CHLORIDE 0.9% 10ML SYR (RAD ONLY) 10 ML IV (11:49)
--- NOTE | 2023-09-19 11:50 | PC.NURSE ---
in room doing stroke assessment at this time.
--- NOTE | 2023-09-19 11:53 | PC.NURSE ---
Manual BP 160/80
--- NOTE | 2023-09-19 11:56 | ECG_ITS ---
APPROVED REPORT Exam: Resting ECG HR:65 bpm ECG Measurements Heart Rate 65 AXES VA 166 P 27 QRSd 95 QRS -30 QT 377 T 7 QTc 388 Conclusion SINUS RHYTHM WITH OCCASIONAL ECTOPIC PREMATURE COMPLEXES LOW QRS VOLTAGE IN PRECORDIAL LEADS [QRS DEFLECTION < 1.0 mV IN CHEST LEADS] PATTERN CONSISTENT WITH PULMONARY DISEASE SEPTAL MYOCARDIAL INFARCTION , PROBABLY OLD [40+ ms Q WAVE IN V1/V2] Electronically signed by : SAMUEL GROSS, 09/19/2023 16:26:34
--- NOTE | 2023-09-19 11:56 | HMH.EDGENADL ---
Discharge Plan Disposition Patient Disposition: Xfer Short-Term Hosp Condition: Fair Prescriptions Prescriptions: No Action losartan 25 mg tablet 25 mg PO DAILY 90 Days Patient Comments: omeprazole 40 mg capsule,delayed release(DR/EC) 40 mg PO DAILY 90 Days Patient Comments: clopidogrel 75 mg tablet 75 mg PO DAILY 90 Days Patient Comments: metformin 500 mg tablet 500 mg PO DAILY 90 Days Patient Comments: carvedilol 12.5 mg tablet 12.5 mg PO BID 90 Days Patient Comments: aspirin 81 mg tablet,chewable 81 mg PO ONCE clonidine HCl 0.1 mg tablet 0.1 mg PO NEEDED PRN (Reason: hypertension) amlodipine 5 mg tablet 5 mg PO BID famotidine 20 mg Tablet 20 mg PO BID atorvastatin 40 MG tablet 40 mg PO HS Referrals Follow up/Referrals: Chase Robles MD [Primary Care Provider] - See instructions Clinical Impressions Clinical Impression: Hypertensive emergency, AMS (altered mental status), Acute right-sided weakness, Aphasia, Fever Stand Alone Forms Stand Alone Forms: Transfer Record - ED Instructions Patient Instructions: DI for Altered Mental Status Discharge ED Provider: Whit Armstrong General Adult HPI General Chief complaint: Altered Mental Status Stated complaint: Stroke Symptoms Time Seen by Provider: 09/19/23 11:42 History of Present Illness HPI narrative: This patient is an 88-year-old female with a history of hypertension, hyperlipidemia, prior CVA, TIAs, diabetes, GERD presented to the emergency department by EMS with concern for strokelike symptoms. According to EMS, they were called to the scene because the patient was found to have right-sided deficits and difficulty talking. She reportedly is ambulatory, drive herself, and is alert and oriented baseline. Family has spoken with her on the phone last night around 6 PM and she was normal at that time. She appears to have put on her pajamas, gone to bed sometime last night, and no one had heard from her this morning prompting family to check on the patient. All of the history above is from EMS. Patient's daughter arrives and noted that she talked to the patient yesterday 09/18/23 morning sometime early in the morning. She states she had not heard from her the rest of the day yesterday or today, which is not unusual for her. She notes that this morning, the patient was supposed have a doctor's appointment at 1030am that she did not attend, prompting daughter to go and check on the patient. She noted that the patient was in bed in her pajamas and had urinated and had a bowel movement on herself. She also noted that there were a lot of broken dishes in the kitchen and that the back door was open. At this time, LAST KNOWN NORMAL will effectively be yesterday AM at some point > 24 hours ago, which would leave her outside of any window for tpa or thrombectomy. Daughter is trying to reach out to family now to see if anyone else has heard from the patient or seen her since yesterday morning. Patient does not contribute to history as she has severe aphasia. I reviewed past medical records which noted previous evaluations for hypertensive emergency, nontoxic goiter. It appears that she is on clopidogrel and aspirin but does not take any anticoagulants. Related Data Home Medications Medication Instructions Recorded Confirmed aspirin 81 mg chewable tablet 81 mg PO ONCE heart 07/24/17 09/19/23 carvedilol 12.5 mg tablet 12.5 mg PO BID heart 90 days 07/24/17 09/19/23 clonidine HCl 0.1 mg tablet 0.1 mg PO NEEDED PRN 07/24/17 09/19/23 hypertension clopidogrel 75 mg tablet 75 mg PO DAILY heart 90 days 07/24/17 09/19/23 losartan 25 mg tablet 25 mg PO DAILY heart 90 days 07/24/17 09/19/23 metformin 500 mg tablet 500 mg PO DAILY Diabetes 90 days 07/24/17 09/19/23 omeprazole 40 mg capsule,delayed 40 mg PO DAILY stomach 90 days 07/24/17 09/19/23 release atorvastatin 40 mg tablet 40 mg PO HS Cholesterol 10/30/18 09/19/23 amlodipine 5 mg tablet 5 mg PO BID 09/19/23 09/19/23 famotidine 20 mg tablet 20 mg PO BID 09/19/23 09/19/23 Allergies Allergy/AdvReac Type Severity Reaction Status Date / Time vancomycin [VANCOMYCIN] Allergy Unknown Verified 09/16/19 14:05 [facility] Disclaimer: The information contained in this section may have been updated after the patient was seen, as this information can be updated by other users. Social History Smoking Status: Never smoker alcohol intake: never substance use type: denies use current occupational status: retired Travel in the last 8 weeks: None ROS Obtained: Yes unobtainable due to mental status Physical Exam General General appearance: alert Comment: ill-appearing Head Head exam: normocephalic and other (bruise to chin) Eye Eye exam: Present PERRL; Absent EOMI, scleral icterus, conjunctival redness or conjunctival injection ENT ENT exam: Present normal exam and normal oropharynx Neck Neck exam: Present normal inspection Chest Chest inspection: Present normal inspection and symmetric chest wall rise Respiratory Respiratory exam: Present normal lung sounds bilaterally; Absent respiratory distress, wheezes or stridor Cardiovascular Cardiovascular exam: Present regular rate, normal rhythm and other (hypertensive with BP 212/120) Abdominal Exam Abdominal exam: Present soft; Absent distention, tenderness or guarding Extremities Exam Extremities exam: Absent tenderness, edema or joint swelling Back Exam Back exam: Present normal inspection Neurological Exam Neurological exam: Present alert and motor sensory deficit; Absent oriented X3 or CN II-XII intact Expanded Neurological Exam Speech: Present total aphasia Cranial nerves: Abnormal Right: EOM function (II, III, IV, ) and facial palsy (VII) Motor strength - LUE: 5/5 Motor strength - RUE: 1/5 Motor strength - LLE: 0/5 Motor strength - RLE: 0/5 Upper motor neuron exam: Abnormal Right: hakeem neglect Coma scale eye opening: Spontaneous Coma scale motor response: Withdraws to pain Coma scale verbal response: Incomprehensible Coma scale total: 10 Comment: NIHSS of 25 with R facial droop, RUE weakness, no effort with BLE, R hemineglect, aphasia, dysarthria. Does not follow commands, only states yes ma'am Skin Skin exam: Present warm and dry Medical Decision Making Medical Records Medical records reviewed: Yes I reviewed the patient's medical records. Rambo Inquiry Pt receiving controlled substance: No Vital Signs: 09/19/23 11:56 09/19/23 12:12 09/19/23 12:16 Temperature 100.8 F H 100.8 F H Temperature Source Rectal Rectal Pulse Rate 86 Pulse Rate [Right Brachial] 71 Respiratory Rate 16 18 Blood Pressure 160/80 H 211/104 H Blood Pressure [Right Arm] 160/80 H Blood Pressure Mean [Right Arm] 106 Blood Pressure Source Manual Cuff/ Auscultation Blood Pressure Source [Right Arm] Manual Cuff/ Auscultation Blood Pressure Position Supine Blood Pressure Position [Right Arm] Supine 02 Sat by Pulse Oximetry 94 L 92 L Oxygen Delivery Method Room Air Room Air 09/19/23 12:16 Temperature Temperature Source Pulse Rate 65 Pulse Rate [Right Brachial] Respiratory Rate 18 Blood Pressure 224/121 H Blood Pressure [Right Arm] Blood Pressure Mean [Right Arm] Blood Pressure Source Automatic Cuff Blood Pressure Source [Right Arm] Blood Pressure Position Supine Blood Pressure Position [Right Arm] 02 Sat by Pulse Oximetry 97 Oxygen Delivery Method Room Air Lab Data Lab Results 09/19/23 11:50: WBC 9.4, RBC 3.62 L, Hgb 12.0 L, Hct 35.8 L, MCV 98.9, MCH 33.2 H, MCHC 33.6, RDW 13.8, Plt Count 122 L, MPV 8.1, Neut % (Auto) 82.2 H, Lymph % (Auto) 10.6, Mcmullen % (Auto) 4.8, Eos % (Auto) 1.9, Baso % (Auto) 0.4, Neut # (Auto) 7.7, Lymph # (Auto) 1.0, Mcmullen # (Auto) 0.5, Eos # (Auto) 0.2, Baso # (Auto) 0.0, PT 11.9, INR 1.11 H, APTT 27.9, Sodium 134 L, Potassium 4.1, Chloride 99, Carbon Dioxide 29, Anion Gap 10.1, BUN 19 H, Creatinine 0.90, Estimated Creat Clear 44, Estimated GFR 59, Est GFR ( Amer) 71, Glucose 160 H, Calcium 9.4, Total Bilirubin 0.8, AST 23, ALT 18, Alkaline Phosphatase 85, Troponin I < 0.01, Total Protein 5.9 L, Albumin 3.6, Globulin 2.3, Albumin/Globulin Ratio 1.6 09/19/23 11:57: Urine Color Yellow, Urine Appearance Clear, Urine pH 8.0, Ur Specific [place] 1.020, Urine Protein 2+, Urine Glucose (UA) Negative, Urine Ketones Negative, Urine Blood Trace-i, Urine Nitrate Negative, Urine Bilirubin Negative, Urine Urobilinogen 0.2, Ur Leukocyte Esterase Negative, Urine RBC None, Urine WBC Occasional, Ur Squamous Epith Cells Occasional, Urine Bacteria None 09/19/23 12:13: VBG pH 7.38, VBG pCO2 44.2, VBG pO2 28.6, VBG HCO3 25.4, VBG Total CO2 26.7, VBG O2 Saturation 54.8, VBG Base Excess 0.2, VBG Lactic Acid 1.5 09/19/23 11:50 09/19/23 11:50 Orders (Tests/Meds): ED MEDICATIONS Generic Name Dose Route Start Last Admin Trade Name Freq PRN Reason Stop Dose Admin Nicardipine HCl 25 mg/ Sodium 250 mls @ 50 mls/hr 09/19/23 12:30 Chloride IV 10/19/23 12:29 .Q5H MARIAELENA Protocol Discontinued Medications Generic Name Dose Route Start Last Admin Trade Name Freq PRN Reason Stop Dose Admin Iopamidol 100 ml 09/19/23 11:47 09/19/23 11:48 Iopamidol-370 (76%);100ml Bottle IV 09/19/23 11:48 100 ml ONCE ONE Administration Labetalol HCl 10 mg 09/19/23 12:09 09/19/23 12:16 Labetalol 5mg/Ml 20ml Mdv IV 09/19/23 12:10 10 mg ONCE ONE Administration Ondansetron HCl 4 mg 09/19/23 12:09 09/19/23 12:15 Ondansetron 4mg/2ml Vial IV 09/19/23 12:10 4 mg ONCE ONE Administration Sodium Chloride 10 ml 09/19/23 11:47 09/19/23 11:49 Sodium Chloride 0.9% 10ml Syr (Rad Only) IV 09/19/23 11:48 10 ml ONCE ONE Administration Sodium Chloride 50 ml 09/19/23 11:47 09/19/23 11:48 0.9 % Sodium Chloride 50 Ml Vial IV 09/19/23 11:48 50 ml ONCE ONE Administration ORDERS Category Date Time Status CT angio head Stat Cat Scan 09/19/23 11:[address] angio neck Stat Cat Scan 09/19/23 11:[address] head/brain wo con Stat Cat Scan 09/19/23 11:28 Completed XR chest portable Stat Exams 09/19/23 11:29 Taken Acetaminophen Stat Lab 09/19/23 12:43 Ordered Activated Partial Thrombo Time Stat Lab 09/19/23 11:50 Completed CBC w/Auto Diff [Complete Blood Count Auto Diff] Stat Lab 09/19/23 11:50 Completed Comprehensive Metabolic Panel Stat Lab 09/19/23 11:50 Completed Ethyl Alcohol Stat Lab 09/19/23 12:43 Ordered Prothrombin Time INR Stat Lab 09/19/23 11:50 Completed Rapid PCR Covid and Flu A/B Stat Lab 09/19/23 12:41 Ordered Salicylate Stat Lab 09/19/23 12:43 Ordered Troponin I Q3H Lab 09/19/23 12:43 Ordered Troponin I Q3H Lab 09/19/23 17:30 Ordered Troponin I Stat Lab 09/19/23 11:50 Completed UDS [Drug Screen,Urine] Stat Lab 09/19/23 12:43 Ordered Urinalysis and Microscopic Stat Lab 09/19/23 11:57 Completed Blood Culture Stat Micro 09/19/23 Received Venous Blood Gas Stat RT 09/19/23 12:13 Completed ECG Data Tracing #1: I reviewed this ECG and interpreted as documented below: Normal sinus rhythm with a ventricular rate of [address] changes concerning for ischemia. Nonspecific ST/T wave changes. ECG initial impression date: 09/19/23 ECG initial impression time: 11:57 Medical Decision Narrative: In summary, this patient is a 88-year-old female presenting to the Emergency Department for evaluation of strokelike symptoms. Differential diagnoses considered include but are not limited to CVA, intracranial hemorrhage, hypertensive emergency, urinary tract infection, seizure, hypoglycemia, other stroke mimic. Ruling out the most morbid conditions drove assessment. It should be noted patient's history includes hypertension which is not at goal therapy. This complicates all aspects of care by increasing patient's risk for morbidity. I reviewed patient's past medical records and noted previous evaluations for hypertensive emergency as per HPI. Patient arrives with exam highly concerning for stroke with profound right-sided deficits, aphasia, and dysarthria. She has right-sided hemineglect. Patient was taken emergently for stroke protocol scans. Fingerstick blood leukosis within normal limits. She is hypertensive with systolics greater than 200s, so IV labetalol was ordered. Workup included CBC, CMP, troponin, PT, PTT, urinalysis, VBG, lactic acid, blood cultures. I independently interpreted CT scans prior to the radiologist read and noted no acute intracranial hemorrhage. Please see their read for final interpretation. Imaging was shared with [facility] neuroradiology via [facility] who noted no large vessel occlusion. I then called [facility] neuro stroke consult with Dr. Hill who advised this does not seem like a stroke. Workup is ongoing, but presentation to me is highly concerning for stroke vs hypertensive emergency. Labs were obtained that demonstrated no significant leukocytosis, normal VBG and lactic acid, and no significant electrolyte derangements that I feel likely caused the symptoms. Sodium is 134, though I do not feel this is clinically significant in this picture. Urinalysis is not concerning for infection. On reassessment, the patient continues to be altered, though she is moving her right upper extremity a little bit more than she had been previously. She still has nonsensical speech and is now reaching for things in the air that are not there. I called and had an interactive discussion with LICENSING WORKER Flo Holt with [facility] [place] stroke and he accepted the patient as a transfer for further stroke evaluation on behalf of Dr. Johnson. In the meantime, patient was given IV labetalol with no good response in her blood pressure. Given this, decision was made to order Cardene for goal systolic blood pressure of 180. Ultimately, EMS transport was arranged and the patient was transported in stable condition. Critical Care Critical Care Time Critical Care Time: Yes Attestation: On 09/19/23, the high probability of a clinically significant, sudden or life threatening deterioration of the following system(s) required my full and direct attention, intervention and personal management. The time I documented below is in addition to time spent performing reported procedures but includes the following listed in this critical care notation. Total Time Total Critical Care Time: 60
[2023-09-19 11:57] LABS: Basophils % 0.4 % (0.1-2.0); Eosinophils # 0.2 K/mm3 (0.0-0.4); Eosinophils % 1.9 % (0.1-12.0); Hematocrit 35.8 % (37.0-47.0); Lymphocytes % 10.6 % (10-50); Mean Corpuscular HGB Conc 33.6 g/dL (31.8-35.4); Mean Corpuscular Hemoglobin 33.2 pg (27.0-31.2); Mean Corpuscular Volume 98.9 fl (81-99); Mean Platelet Volume 8.1 fl (7.4-10.4); Monocytes # 0.5 K/mm3 (0.1-1.0); Monocytes % 4.8 % (1.7-9.3); Neutrophils # 7.7 K/mm3 (1.8-7.8); Neutrophils % 82.2 % (37.0-80.0); Platelet Count 122 K/mm3 (142-424); Red Blood Count 3.62 M/mm3 (4.20-5.40); Red Cell Distribution Width 13.8 % (11.5-17.5); White Blood Count 9.4 K/mm3 (4.8-10.8)
--- NOTE | 2023-09-19 11:58 | PC.NURSE ---
Pt daughter placed in triage room. Dr. Armstrong speaking with her at this time.
--- NOTE | 2023-09-19 11:59 | PC.NURSE ---
RAD at BS for XRAY
[2023-09-19 12:01] LABS: Microscopic, Urine URINE MICROSCOPIC (MICROSCOPIC)
[2023-09-19 12:05] LABS: Chloride 99 mmol/L (98-107); Potassium 4.1 mmoL/L (3.5-5.1); Sodium 134 mmol/L (136-145)
--- NOTE | 2023-09-19 12:06 | PC.NURSE ---
Daughter at BS
[2023-09-19 12:07] LABS: Blood Urea Nitrogen 19 mg/dl (7-17); Creatinine Clearance Estimated 44 mL/min (50-200); Estimated Glomerular Filt Rate 59 ml/min (>60); GFR (African American) 71 ML/MIN (>60)
--- NOTE | 2023-09-19 12:07 | PC.NURSE ---
o/p with at this time.
[2023-09-19 12:08] LABS: Alanine Aminotransferase 18 U/L (12-78); Albumin Level 3.6 g/dl (3.5-5.0); Albumin/Globulin Ratio 1.6 (1.1-1.8); Alkaline Phosphatase 85 U/L (38-126); Anion Gap 10.1 mEq/L (5-15); Aspartate Amino Transferase 23 U/L (14-36); Bilirubin,Total 0.8 mg/dl (0.2-1.3); Calcium 9.4 mg/dl (8.4-10.2); Carbon Dioxide 29 mmol/L (22.0-30.0); Globulin 2.3 g/dL (1.3-3.2); Glucose 160 mg/dl (74-100); Total Protein,Serum 5.9 g/dl (6.3-8.2)
[2023-09-19 12:13] LABS: Appearance,Urine CLEAR (Clear); Bilirubin,Urine Negative (Negative); Blood, Urine TRACE-I (Negative); Color,Urine YELLOW (Yellow); Glucose,Urine (UA) Negative (Negative); Ketones,Urine Negative (Negative); Leukocyte Esterase,Urine Negative (Negative); Nitrate,Urine Negative (Negative); Protein,Urine 2+ (Negative); Urobilinogen,Urine 0.2 EU/dl (0.2)
--- NOTE | 2023-09-19 12:13 | PC.NURSE ---
called RT for vbg collect
--- NOTE | 2023-09-19 12:13 | PC.NURSE ---
o/p with 's Stroke provider at this time.
[2023-09-19 12:14] LABS: Activated Partial Thrombo Time 27.9 seconds (22.8-30.6); INR 1.11 (0.9-1.1); Prothrombin Time 11.9 seconds (10.1-12.5)
[2023-09-19] MEDS: ONDANSETRON 4MG/2ML VIAL 4 MG IV (12:15)
[2023-09-19] MEDS: LABETALOL 5MG/ML 20ML MDV 10 MG IV (12:16)
[2023-09-19 12:18] LABS: Lactate Venous 1.5 mmol/L (0.4-2.0); VBG Base Excess 0.2 mmol/L (-2.4-2.3); VBG HCO3 25.4 mmol/L (23-30); VBG Oxygen Saturation 54.8 % (50-70); VBG PCO2 44.2 mmol/L (35-51); VBG PH 7.38 mmol/L (7.31-7.41); VBG PO2 28.6 mmol/L (28-40); VBG Total CO2 26.7 mmol/L (23-27)
--- NOTE | 2023-09-19 12:19 | PC.NURSE ---
Dr. Armstrong spoke with Dr. Hill at neurology at this time.
--- NOTE | 2023-09-19 12:21 | PC.NURSE ---
calling Yenni at this time.
--- NOTE | 2023-09-19 12:24 | PC.NURSE ---
o/p with [facility] at this time.
[2023-09-19 12:27] LABS: Troponin I < 0.01 ng/ml (0.00-0.034)
--- NOTE | 2023-09-19 12:33 | PC.NURSE ---
Pt accepted to [facility] by Dr. Johnson. Waiting workers' compensation claims examiner back for bed assignment
[2023-09-19 12:44] LABS: Squamous Epithelial Cell,Urine Occasional #/hpf (0-5); WBC,Urine Occasional #/hpf (0-3)
[2023-09-19] MEDS: NICARDIPINE HCL 25 MG in 0.9 % SODIUM CHLORIDE 240 ML 50 MG IV (12:48)
[2023-09-19 12:52] LABS: Coronavirus 19, PCR Not Detected (NotDetected); Influenza A, PCR Not Detected (NotDetected); Influenza B, PCR Not Detected (NotDetected)
[2023-09-19 13:00] LABS: Acetaminophen < 10 ug/ml (10-30); Salicylate < 1.0 mg/dL (2.0-20.0)
--- NOTE | 2023-09-19 13:09 | PC.NURSE ---
Pt resting in bed. Visitors remain at BS. No needs voiced.
[2023-09-19 13:10] LABS: Ethyl Alcohol < 10 mg/dl (0-10)
[2023-09-19 13:11] LABS: Amphetamine/Metha Screen,Urine Negative ng/ml (<1000)
[2023-09-19 13:12] LABS: Barbiturates Screen,Urine Negative ng/ml (<200); Benzodiazepines Screen,Urine Negative ng/ml (<200)
[2023-09-19 13:13] LABS: Cannabinoid Screen,Urine Negative ng/ml (<50)
[2023-09-19 13:14] LABS: Cocaine Screen,Urine Negative ng/ml (<300); Methadone Screen,Urine Negative ng/ml (<300)
[2023-09-19 13:15] LABS: Opiate Screen,Urine Negative ng/ml (<300)
[2023-09-19 13:16] LABS: Phencyclidine Screen,Urine Negative ng/ml (<25)
--- NOTE | 2023-09-19 13:26 | PC.NURSE ---
Drip decreased due to BP. MD requests systolic of 180.
== END 2023-09-19 13:50 | disposition short-term general hospital (02) ==
PROVIDERS: Emergency Provider Emergency Medicine; PCP Internal Medicine Adolescent Medicine
DX: I16.1 Hypertensive emergency (principal); R47.01 Aphasia; R41.82 Altered mental status, unspecified; R50.9 Fever, unspecified; R53.1 Weakness; E11.9 Type 2 diabetes mellitus without complications; K21.9 Gastro-esophageal reflux disease without esophagitis; I10 Essential (primary) hypertension; E78.5 Hyperlipidemia, unspecified; Z79.84 Long term (current) use of oral hypoglycemic drugs; R44.2 Other hallucinations
CPT/HCPCS: 70450; 70496; 70498; 71045; 80053; 80307; 80329; 81001; 82803; 84484; 85025; 85610; 85730; 87040; 87636; 93005; 96365; 96375; 99291; G0480; J2405; Q9967